=== PATIENT | female | born 1970 | race Caucasian/White ===

== ENCOUNTER 2018-11-17 17:14 | Emergency (ER) | payer OTHER ==
[2018-11-17] MEDS: LIDOCAINE/MYLANTA 40 ML BTL PO (18:18)
== END 2018-11-17 19:32 | disposition home or self-care (01) ==
LOC: FTE 17:14
DX: R09.89 Other specified symptoms and signs involving the circulatory and respiratory systems (principal); Z00.00 Encounter for general adult medical examination without abnormal findings
CPT/HCPCS: 70490; 71250; 99284-25